=== PATIENT | female | born 1960 | race Two or more races ===

== ENCOUNTER 2023-11-24 09:24 | Day surgery (SDC) | payer OTHER ==
[2023-11-24] MEDS ORDERED: MIRALAX17 GM PO (11:18)
[2023-11-24] MEDS ORDERED: TRAMADOL HCL50 MG PO (11:18)
[2023-11-24] MEDS ORDERED: TYLENOL ARTHRI650 MG PO (11:18)
[2023-11-24] MEDS ORDERED: KETO10TA2 PO (11:18)
[2023-11-24] MEDS ORDERED: CEFAZOLIN SODIUM 1,000 MG VIAL IV ONE (12:15)
[2023-11-24] MEDS ORDERED: BUPIVACAINE HCL 30 ML VIAL IJ ONE (12:15)
[2023-11-24] MEDS ORDERED: LIDOCAINE HCL 1%/EPINEPHRINE 20ML VIAL IJ ONE (12:30)
[2023-11-24] MEDS ORDERED: KETOROLAC TROMETHAMINE 30 MG VIAL IV ONE (13:00)
[2023-11-24] MEDS ORDERED: SUGAMMADEX SODIUM 200 MG/2 ML VIAL IV ONE (13:15)
[2023-11-24] MEDS ORDERED: MORPHINE SULFATE 4 MG/ML VIAL IV ONE (15:30)
== END 2023-11-24 17:00 | disposition home or self-care (01) ==
LOC: CIR.AMB 09:24
PROVIDERS: ATTEND Surgery
DX: K80.20 Calculus of gallbladder without cholecystitis without obstruction (principal); K42.0 Umbilical hernia with obstruction, without gangrene; M41.9 Scoliosis, unspecified